=== PATIENT | male | born 1975 | race Caucasian/White ===

== ENCOUNTER 2025-01-23 09:15 | Emergency (ER) | payer OTHER ==
[~2025-01-23] VITALS: Ht 170.2 cm; Wt 74.8 kg
[2025-01-23] MEDS ORDERED: ACETAMINOPHEN ES 500 MG TABLET ONE (09:58)
[2025-01-23] MEDS ORDERED: TDAP [DIPH/PERTUSSIS/TET] 0.5 ML VIAL IM ONE (09:59)
[2025-01-23] MEDS: TDAP [DIPH/PERTUSSIS/TET] 0.5 ML VIAL IM ONE (10:26)
[2025-01-23] MEDS: ACETAMINOPHEN ES 500 MG TABLET PO ONE (10:27)
[2025-01-23] MEDS ORDERED: IBUPROFEN 600 MG TABLET ONE (11:00)
[2025-01-23] MEDS: IBUPROFEN 600 MG TABLET PO ONE (11:04)
[2025-01-23 11:07] VITALS: BP 133/87; TEMP 98; O2SAT 98
== END 2025-01-23 11:08 | disposition home or self-care (01) ==
LOC: ER 09:21
DX: S01.111A Laceration without foreign body of right eyelid and periocular area, initial encounter (principal); S40.021A Contusion of right upper arm, initial encounter; S80.02XA Contusion of left knee, initial encounter; V43.62XA Car passenger injured in collision with other type car in traffic accident, initial encounter; Y93.89 Activity, other specified; Y92.488 Other paved roadways as the place of occurrence of the external cause; Y99.8 Other external cause status
CPT/HCPCS: 12011; 70450; 70486; 71045; 73030; 73080; 73560; 90471; 90715; 99285; A6403